=== PATIENT | female | born 1995 | race Caucasian/White ===

== ENCOUNTER → 2016-10-31 | Outpatient (REF) | payer OTHER ==
[2016-10-31 13:33] LABS: MEAN CORPUSCULAR HEMOGLOBIN 28.3 pg (27.0-33.0); MEAN CORPUSCULAR HGB CONC 33.3 g/dl (32.0-36.5); MEAN CORPUSCULAR VOLUME 85.1 fl (80.0-96.0); RED CELL DISTRIBUTION WIDTH 12.7 % (11.5-14.5); WHITE BLOOD COUNT 8.3 K/mm3 (4.0-10.0)
[2016-10-31 14:10] LABS: FREE T4 1.07 NG/DL (0.78-1.33); HCG, SERUM QUANTITATIVE < 1.0 MIU/ML
[2016-11-03 14:17] LABS: 17 HYDROXY PROGESTERONE 37 ng/dL (.)
== END ==
LOC: M LAB REF 12:20
PROVIDERS: ATTEND Advanced Practice Midwife
DX: N92.6 Irregular menstruation, unspecified (principal)

== ENCOUNTER → 2016-12-04 | Outpatient (REF) | payer OTHER ==
[2016-12-04 14:20] LABS: ALBUMIN 3.9 GM/DL (3.2-5.2); ALBUMIN/GLOBULIN RATIO 1.11 (1.00-1.93); ALKALINE PHOSPHATASE 61 U/L (45-117); ALT/SGPT 23 U/L (12-78); ANION GAP 10 MEQ/L (8-16); AST/SGOT 11 U/L (15-37); BILIRUBIN,TOTAL 0.2 MG/DL (0.2-1.0); BLOOD UREA NITROGEN 12 MG/DL (7-18); CALCIUM LEVEL 9.4 MG/DL (8.5-10.1); CARBON DIOXIDE LEVEL 24 MEQ/L (21-32); CHLORIDE LEVEL 109 MEQ/L (98-107); CREATININE FOR GFR 0.65 MG/DL (0.55-1.02); GLUCOSE, FASTING 91 MG/DL (70-105); POTASSIUM SERUM 4.5 MEQ/L (3.5-5.1); SODIUM LEVEL 143 MEQ/L (136-145); TOTAL PROTEIN 7.4 GM/DL (6.4-8.2)
== END ==
LOC: M SMT 13:28
PROVIDERS: ATTEND Advanced Practice Midwife
DX: E28.1 Androgen excess (principal)

== ENCOUNTER → 2017-11-12 | Outpatient (CLI) | payer OTHER ==
[2017-11-12 17:04] LABS: INR 1.06; PARTIAL THROMBOPLASTIN TIME 31.9 SECONDS (25.4-37.6); PROTHROMBIN TIME 13.9 SECONDS (12.1-14.4)
[2017-11-14 10:35] LABS: FIBRINOGEN 366 MG/DL (221-452)
== END ==
LOC: M WUC 11:34
DX: Z36.89 Encounter for other specified antenatal screening (principal); D68.0 Von Willebrand disease; Z3A.00 Weeks of gestation of pregnancy not specified
CPT/HCPCS: 85384

== ENCOUNTER 2018-05-05 06:34 | Inpatient (IN) | payer OTHER ==
[~2018-05-05] VITALS: Ht 162.6 cm; Wt 111.3 kg
[2018-05-05] VITALS (29 sets, daily range): BP systolic 110–163; BP diastolic 56–85
[2018-05-05] MEDS ORDERED: PENICILLIN G POTASSIUM IV 5 MU in D5W MINI-BAG PLUS 100 ML IV STA (07:16)
[2018-05-05] MEDS ORDERED: BETAMETHASONE SOLUSPAN 6MG/ML INJ 5ML (J0702) IM ONE (07:45)
[2018-05-05] MEDS ORDERED: BREO1INH PO (08:07)
[2018-05-05] MEDS ORDERED: ALBU83IN INH (08:07)
[2018-05-05] MEDS ORDERED: PRENTAB9 PO (08:07)
[2018-05-05 08:09] LABS: HEMOGLOBIN 11.4 g/dl (12.0-15.5); MEAN CORPUSCULAR HEMOGLOBIN 28.4 pg (27.0-33.0); MEAN CORPUSCULAR HGB CONC 33.5 g/dl (32.0-36.5); MEAN CORPUSCULAR VOLUME 84.6 fl (80.0-96.0); PLATELET COUNT, AUTOMATED 240 10^3/uL (150-450); RED BLOOD COUNT 4.02 10^6/uL (4.00-5.40); WHITE BLOOD COUNT 14.9 10^3/uL (4.0-10.0)
[2018-05-05] MEDS: miSOPROStol 50 MCG 1/2 TAB (S0191) SL SCH ×3 (09:50→16:00)
[2018-05-05] MEDS: PENICILLIN G POTASSIUM IV 2.5 MU in APPROPRIATE DILUENT 1 EA IV SCH ×2 (12:07→16:25)
[2018-05-05] MEDS ORDERED: LR 1,000 ML IV ONE (17:00)
[2018-05-05] MEDS ORDERED: FENTANYL 2MCG/ML ROPIVACAINE 0.2% IN 0.9% NACL 100ML IVBAG As Ordered ONE (17:08)
[2018-05-05] MEDS: LR 1,000 ML IV SCH ×2 (17:44→18:28)
[2018-05-05] MEDS ORDERED: LACTATED RINGER'S 1000 ML IV PRN (17:45)
[2018-05-05] MEDS ORDERED: diphenhydrAMINE INJ 50MG/ML VIAL (J1200) IV PRN (17:45)
[2018-05-05] MEDS ORDERED: EPIDURAL COMMENT XX SCH (17:45)
[2018-05-05] MEDS ORDERED: EPIDURAL/PCA KEYS XX PRN (17:45)
[2018-05-05] MEDS ORDERED: ONDANSETRON 4MG/2ML VIAL (J2405) IV PRN (17:45)
[2018-05-05] MEDS ORDERED: ePHEDrine SULFATE 25 MG/5 ML(5MG/ML) SYRINGE IV PRN (17:45)
[2018-05-05] MEDS ORDERED: REFRIGERATOR IV KEYS XX PRN (17:45)
[2018-05-05] MEDS ORDERED: NALOXONE INJ 0.4 MG/1 ML VIAL (J2310) IV PRN (17:45)
[2018-05-05] MEDS ORDERED: FENTANYL/ROPIVACAINE/NACL BAG 100 ML EPIDURAL SCH (17:45)
[2018-05-05] MEDS ORDERED: OXYTOCIN 30 UNITS IN 0.9% NaCl 500ML IV BAG (J2590) As Ordered ONE (18:46)
[2018-05-05] MEDS ORDERED: OXYTOCIN DRIP 30 UNITS in APPROPRIATE DILUENT 1 EA IV SCH (19:22)
[2018-05-05] MEDS ORDERED: ACETAMINOPHEN 500 MG TAB PO PRN (19:30)
[2018-05-05] MEDS ORDERED: DOCUSATE SODIUM 100 MG CAP PO PRN (19:30)
[2018-05-05] MEDS ORDERED: MEASLES,MUMPS,RUBELLA VACCINE INJ (MMR-II) (90707) SC SCH (19:30)
[2018-05-05] MEDS ORDERED: METHYLERGONOVINE MALEATE 0.2 MG TAB PO PRN (19:30)
[2018-05-05] MEDS ORDERED: RHOGAM 300 MCG (1500 IU) INJ (J2790) IM SCH (19:30)
[2018-05-05] MEDS ORDERED: IBUPROFEN 800 MG TAB PO PRN (19:30)
[2018-05-05] MEDS ORDERED: DIBUCAINE 1% OINTMENT 30GM TOP PRN (19:30)
--- NOTE | 2018-05-05 19:48 | DNPDOC ---
[facility] Delivery Note Delivery Note DATE OF DELIVERY: 05/05/2018 at 1901 PREDELIVERY DIAGNOSIS: 35-3/7 weeks' gestation and labor. POST DELIVERY DIAGNOSIS: Delivered. PROCEDURE: Spontaneous vaginal delivery. COOKER SULFITE: Jeffery Driscoll CNM, RADHA ANESTHESIA: epidural. ESTIMATED BLOOD LOSS: 250 mL. FINDINGS: 6 pounds 4 ounces; 2830 grams; male , Score 8/9, PPROM. DELIVERY SUMMARY: Patient is a 23-year-old female who is now a who presented at 35.3 weeks gestation with premature rupture of membranes. She spontaneously ruptured at 0445 this morning. She received 1 dose of betamethasone. She requested an epidural and did receive it for pain management. The patient was given 2 doses of cytotec and progressed to fully dilated at 1855. Dr. Savage was notified prior to pushing. She pushed to a living male in the MATTHEW position with restitution to ROT at 1901. The anterior shoulder delivered with ease and the corpus immediately followed. The baby was placed on the maternal stomach active and crying with stimulation. The cord was clamped after pulsation ceased x2 and cut by the FOB. A 3-vessel cord was noted. The placenta delivered spontaneously and intact at 1907. Uterine hemostasis was achieved via rapid infusion of IV Pitocin and fundal massage. The vagina and perineum were inspected and found to be intact. Dr. Savage arrived to the delivery 8 minutes after. Mom plans to bottle feed. They are naming him "Ranjit." Baby to stay with mom in the room for 30 minutes then transition in the NICU for at least 4 hours. Both mom and baby are in stable condition. JEFFERY DRISCOLL CNM May 05, 2018 19:48
[2018-05-06 06:02] VITALS: BP 113/54
--- NOTE | 2018-05-06 06:02 | HPE ---
DATE OF ADMISSION: 05/05/2018 A 23-year-old G1 (), para (P) 0 female at 35-3/7 weeks gestation by seven week ultrasound with estimated date of confinement (EDC) 06/06/2018 presents with spontaneous loss of fluid per vagina at 4:45 a.m. on the day of admission. She continued to leak fluid. She denies contractions. She has good movement. COURSE: The patient initiated care at [facility]. She transferred to [facility] at 33 weeks gestation 04/01/2018. The remainder of her course was unremarkable. PAST MEDICAL HISTORY: 1. Mild asthma. 2. Von Willebrand's deficiency. 3. A history of genital herpes simplex viruses (HSV). PAST SURGICAL HISTORY: 1. Tonsillectomy. 2. Ovarian cystectomy. ALLERGIES: None. SOCIAL HISTORY: The father of the baby is involved. The patient lives in [place]. She denies cigarettes, alcohol or drug use. FAMILY HISTORY: Noncontributory. PHYSICAL EXAMINATION: VITAL SIGNS: Blood pressure 123/74, pulse 84, afebrile. She is in no apparent distress. HEAD AND NECK: Exam normal. LUNGS: Clear. HEART: Regular rate and rhythm. ABDOMEN: Nontender and gravid. heart tones are category 1. STERILE VAGINAL EXAM: Grossly ruptured, clear fluid noted, positive nitrazine, cervix 2 cm, 70%, -2 station, posterior vertex, moderate. EXTREMITIES: Nontender. CONTRACTIONS: None. LABORATORY DATA: Blood type is O positive, Rubella immune, RPR nonreactive. Hepatitis B and C negative. Diabetes screen 91. ASSESSMENT: A 23-year-old (G) 1, female at 35-3/7 weeks gestation with spontaneous rupture of membranes. PLAN: The patient is admitted on 05/05/2018. We will proceed to induction of labor. The patient received antibiotics for group B Streptococcus (GBS) prophylaxis due to a group B Streptococcus (GBS) unknown status.
[2018-05-06] MEDS: PRENATAL VITAMINS CHEWABLE TABLET PO SCH (08:14)
[2018-05-06 18:00] VITALS: BP 123/70
[2018-05-07 05:49] VITALS: BP 130/64
[2018-05-07] MEDS: PRENATAL VITAMINS CHEWABLE TABLET PO SCH (08:18)
[2018-05-07] MEDS ORDERED: IBUP-1114 PO (09:16)
[2018-05-07] MEDS ORDERED: MAPA500T2 PO (09:16)
== END 2018-05-07 09:35 | disposition home or self-care (01) | DRG 560 ==
LOC: M LDO 06:34 → M LDI 07:10 → M OBS 22:01
PROVIDERS: ADMIT Specialist; ATTEND Advanced Practice Midwife
PROC: 10E0XZZ Delivery of Products of Conception, External Approach (ICD-10-PCS; principal; 2018-05-05)
DX: O42.013 Preterm premature rupture of membranes, onset of labor within 24 hours of rupture, third trimester (principal); O99.824 Streptococcus B carrier state complicating childbirth; Z3A.35 35 weeks gestation of pregnancy; Z37.0 Single live birth

== ENCOUNTER → 2018-08-12 | Outpatient (REF) | payer OTHER ==
[~2018-08-12] MED LIST: ALBU83IN INH; BREO1INH PO; IBUP-1114 PO; MAPA500T2 PO; PRENTAB9 PO
[2018-08-12 13:40] LABS: BASO % 0.4 % (0.0-1.0); EOS # 0.8 10^3/uL (0.0-0.50); EOS % 7.9 % (0.0-3.0); HEMATOCRIT 40.9 % (36.0-47.0); HEMOGLOBIN 13.4 g/dl (12.0-15.5); LYMPH # 3.3 10^3/uL (1.5-6.5); LYMPH % 31.2 % (24.0-44.0); MEAN CORPUSCULAR HEMOGLOBIN 27.6 pg (27.0-33.0); MEAN CORPUSCULAR HGB CONC 32.8 g/dl (32.0-36.5); MEAN CORPUSCULAR VOLUME 84.2 fl (80.0-96.0); MONO # 0.6 10^3/uL (0.0-0.8); MONO % 5.3 % (0.0-5.0); NEUTROPHILS # 5.8 10^3/uL (1.8-7.7); PLATELET COUNT, AUTOMATED 329 10^3/uL (150-450); RED BLOOD COUNT 4.86 10^6/uL (4.00-5.40); WHITE BLOOD COUNT 10.6 10^3/uL (4.0-10.0)
== END ==
LOC: M LAB REF 12:58
PROVIDERS: ATTEND Internal Medicine Pulmonary Disease
DX: J45.40 Moderate persistent asthma, uncomplicated (principal)

== ENCOUNTER → 2019-03-17 | Outpatient (CLI) | payer OTHER | LOC: M PLALAB 11:48 | PROVIDERS: ATTEND Advanced Practice Midwife | DX: O36.80X0 Pregnancy with inconclusive fetal viability, not applicable or unspecified (principal) ==

== ENCOUNTER → 2019-03-24 | Outpatient (CLI) | payer OTHER ==
--- NOTE | 2019-03-24 17:43 | REP ---
FIRST TRIMESTER ULTRASOUND: Real-time ultrasound evaluation of the gravid uterus is performed. There is a single living intrauterine gestation. The estimated gestational age is 8 weeks 2 days based on a crown-rump length of 18 mm. EDC 11/01/2019. heart rate is 178 beats per minute. There is no subchorionic hemorrhage. There is a cystic structure adjacent to the left ovary 2.0 x 2.5 x 1.7 cm which appears to represent a paraovarian cyst. Ovaries otherwise normal demonstrating internal blood flow with duplex Doppler evaluation. Electronically Signed by Oleg Alex MD 03/26/2019 10:23 A
== END ==
LOC: M RAD 15:18
PROVIDERS: ATTEND Advanced Practice Midwife
DX: O36.80X0 Pregnancy with inconclusive fetal viability, not applicable or unspecified (principal); Z3A.08 8 weeks gestation of pregnancy

== ENCOUNTER → 2019-05-14 | Outpatient (CLI) | payer OTHER ==
[2019-05-14 18:44] LABS: GLUCOSE CHALLENGE TEST 1 HOUR 76 MG/DL (LESS THAN 140)
[2019-05-14 19:16] LABS: BASO # 0.1 10^3/uL (0.0-0.2); BASO % 0.4 % (0.0-1.0); EOS # 0.8 10^3/uL (0.0-0.5); EOS % 6.1 % (0.0-3.0); HEMATOCRIT 39.9 % (36.0-47.0); HEMOGLOBIN 12.8 g/dl (12.0-15.5); LYMPH # 3.2 10^3/uL (1.5-5.0); LYMPH % 24.7 % (24.0-44.0); MEAN CORPUSCULAR HEMOGLOBIN 27.3 pg (27.0-33.0); MEAN CORPUSCULAR HGB CONC 32.1 g/dl (32.0-36.5); MEAN CORPUSCULAR VOLUME 85.1 fl (80.0-96.0); MONO # 0.5 10^3/uL (0.0-0.8); MONO % 4.1 % (0.0-5.0); NEUTROPHILS # 8.3 10^3/uL (1.5-8.5); NEUTROPHILS % 64.5 % (36.0-66.0); PLATELET COUNT, AUTOMATED 299 10^3/uL (150-450); RED BLOOD COUNT 4.69 10^6/uL (4.00-5.40); WHITE BLOOD COUNT 12.9 10^3/uL (4.0-10.0)
[2019-05-14 19:37] LABS: HIV 1&2 SCREEN CENTAUR NEGATIVE (NEGATIVE)
[2019-05-14 19:42] LABS: HEMOGLOBIN A1c 5.8 %
[2019-05-16 10:08] LABS: RUBELLA IgG QUALITATIVE IMMUNE (IMMUNE)
[2019-05-16 10:36] LABS: HEPATITIS C VIRUS ABY INDEX < 0.0 INDEX (<0.8)
== END ==
LOC: M PLALAB 12:53
PROVIDERS: ATTEND Advanced Practice Midwife
DX: O99.211 Obesity complicating pregnancy, first trimester (principal)

== ENCOUNTER → 2019-08-13 | Outpatient (REF) | payer OTHER, MEDICAID ==
[2019-08-13 14:30] LABS: HEMATOCRIT 36.1 % (36.0-47.0); HEMOGLOBIN 11.6 g/dl (12.0-15.5); MEAN CORPUSCULAR HEMOGLOBIN 27.8 pg (27.0-33.0); MEAN CORPUSCULAR HGB CONC 32.1 g/dl (32.0-36.5); MEAN CORPUSCULAR VOLUME 86.6 fl (80.0-96.0); PLATELET COUNT, AUTOMATED 290 10^3/uL (150-450); RED BLOOD COUNT 4.17 10^6/uL (4.00-5.40); WHITE BLOOD COUNT 13.3 10^3/uL (4.0-10.0)
== END ==
LOC: M PLALAB 10:41
PROVIDERS: ATTEND Advanced Practice Midwife
DX: O09.219 Supervision of pregnancy with history of pre-term labor, unspecified trimester (principal)

== ENCOUNTER → 2019-09-25 | Outpatient (REF) | payer OTHER, MEDICAID | LOC: M SFHCWAGY 14:25 | PROVIDERS: ATTEND Advanced Practice Midwife | DX: O99.213 Obesity complicating pregnancy, third trimester (principal) ==

== ENCOUNTER → 2019-10-02 | Outpatient (REF) | payer OTHER, MEDICAID | LOC: M PLALAB 08:39 | PROVIDERS: ATTEND Advanced Practice Midwife | DX: O99.213 Obesity complicating pregnancy, third trimester (principal) ==

== ENCOUNTER 2019-10-28 00:08 | Inpatient (IN) | payer OTHER, MEDICAID ==
[~2019-10-28] VITALS: Ht 160 cm; Wt 112.3 kg
[2019-10-28] VITALS (40 sets, daily range): BP systolic 90–132; BP diastolic 45–77
[2019-10-28 01:22] LABS: HEMOGLOBIN 11.1 g/dl (12.0-15.5); MEAN CORPUSCULAR HEMOGLOBIN 25.9 pg (27.0-33.0); MEAN CORPUSCULAR HGB CONC 31.7 g/dl (32.0-36.5); MEAN CORPUSCULAR VOLUME 81.8 fl (80.0-96.0); PLATELET COUNT, AUTOMATED 275 10^3/uL (150-450); RED BLOOD COUNT 4.28 10^6/uL (4.00-5.40)
[2019-10-28] MEDS ORDERED: VALT500T PO (01:22)
[2019-10-28] MEDS ORDERED: SPIR1CAP INH (01:22)
[2019-10-28] MEDS ORDERED: SING10TA32 PO (01:23)
[2019-10-28] MEDS ORDERED: LACTATED RINGER'S 1000 ML IV STA (01:24)
[2019-10-28] MEDS ORDERED: miSOPROStol 50 MCG 1/2 TAB (S0191) As Ordered ONE (01:35)
[2019-10-28] MEDS: miSOPROStol 50 MCG 1/2 TAB (S0191) PO SCH ×2 (01:37→05:39)
--- NOTE | 2019-10-28 01:41 | HPEPDOC ---
Obstetrical History & Physical General Date of Admission Oct 28, 2019 at 00:08 Primary Care Physician: JEFFERY MURDOCK CNM History of Present Illness Patient is a 24-year-old female who is now a at 39.3 weeks gestation with an BO of 11/01/19 based off of her first trimester ultrasound. She initiated care in her first trimester with [facility]. 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 She presents for an elective induction of labor. She reports active movement. She denies leaking of fluid, vaginal bleeding, or contractions. She does report some cramping. Chief Complaint: Induction of labor Information Provided By: Patient Age: 24 : 2 Term: 0 Pre-term: 1 Abortions: 0 Livin Care Care: Good Care Dating Final EDC: Nov 01, 2019 Final EDC by: 1st trimester (US) EGA at Admission: 39.3 Antepartum Course Diagnos(e)s History of delivery HSV II-taking Valtrex Asthma Von Willebrand-mild Height (inches): 63 Pre- weight (lbs.): 239 Admission Weight (lbs.): 248 Change in Weight (lbs.): 9 Past Medical History Past Obstetrical History : Past Obstetrical History: Primgravida Date of Delivery: May 05, 2018 Gestation: 35.3 Type of Delivery: Spontaneous Vaginal Del. 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: Herpes simplex virus(HSV) Past Medical History Medical History Asthma obesity Surgical History: Tonsilectomy, Other (oophorectomy with cystectomy) Family History Significant Family History: Cancer (breast cancer and colon cancer), Other (Mother and sister with Von-Willenbrand) Social History Marital Status: Family situation: Spouse/partner home Psychosocial History: No pertinent psych hx * Smoker: non-smoker Alcohol: Denies Drugs: denies Abuse Violence Screening Have you been hit/kicked/slapp: No Have you been sexually assault: No Allergies Coded Allergies: No Known Allergies (Verified , 05/05/18) Medications Scheduled Fluticasone/Vilanterol (Breo Ellipta 100-25 Mcg INH) 1 Inh Inh, 1 PUFF PO DAILY Montelukast Sodium (Singulair) 10 Mg Tablet, 1 TAB PO DAILY No.137/Iron/Folic Acd ( Vitamin Tablet) 1 Tab Tab, 1 TAB PO DAILY Tiotropium [place] (Spiriva) 18 Mcg Cap.w.dev, 1 INHALATION INH DAILY Valacyclovir HCl (Valtrex) 500 Mg Tablet, 1 TAB PO DAILY Scheduled PRN Acetaminophen (Mapap) 500 Mg Tab, 1,000 MG PO Q6HP PRN for PAIN Albuterol Sulf (Albuterol Sulfate) 2.5 Mg/3 Ml Nebu, 2.5 MG INH for RESPIRATORY DISTRESS Ibuprofen (Ibuprofen) 400 Mg Tab, 800 MG PO Q8HP PRN for PAIN Physical Examination Physical Examination GENERAL: Alert and oriented times three. BREAST: . ABDOMEN: Gravid and non-tender to touch. FETUS: Is vertex (VTX) by sterile vaginal examination (SVE), fetus is vertex (VTX) by Tay. Perineum: Visual inspection done and no lesions present. HEART RATE: Regular rate and rhythm. LUNGS: Clear to auscultation (CTA). EXTREMITIES: No edema. No clonus. Deep tendon reflexes (DTRs) + 2. Vital Signs/I&O Vital Signs Date Time Temp Pulse Resp B/P (MAP) Pulse Ox O2 Delivery O2 Flow Rate FiO2 10/28/19 00:31 98.0 78 121/58 (79) Laboratory Data 24H LABS Laboratory Tests 2 10/28/19 00:26: Serology Scanned Report Hepatitis B Testing 10/28/19 01:15: Nucleated Red Blood Cells % (auto) 0.0 CBC/BMP Laboratory Tests 10/28/19 01:15 Pertinent Laboratoy Data Blood Type: O+ RBC Antibody Screen: Negative HIV: Negative Hepatitis B: Negative Hepatitis C: Negative Rapid Plasma Reagin: Nonreactive Rubella: Immune Chlamydia/Gonorrhea: Negative Group B Streptococcus: Negative Vaginal Examination Dilation: 3 cm Effacement: other (75%) Station: -1 Cervical Consistency: Soft Cervical Position: Anterior Presentation: Cephalic presentation Position: Vertex (occiput) Assessment Heart Rate (FHR): 130 Variability: Moderate Accelerations: Positive Decelerations: None Tocometer Contractions: Yes Frequency: irregular Multi-drug resistant Organism: No history of MDRO Assessment/Plan Assessment IUP at 39.4 weeks gestation Category I FHR tracing GBS negative elective induction of labor Plan Admit to L&D. OOB ad wilma. Diet: regular now and switch to clear liquid when IV Pitocin is started.. Group B Streptococcus (GBS) negative. Labs and intravenous (IV) per unit protocol. Counseled on Cytotec and IV Pitocin for induction of labor (IOL). Cytotec ordered to start IOL. Anesthesia consult per patient's request. Lactated Ringers (LR): Bolus 800 mL prior to epidural then at 125 mL/hr. Anticipate cervical ripening. C-S as appropriate. JEFFERY MURDOCK CNM Oct 28, 2019 01:41
[2019-10-28] MEDS ORDERED: OXYTOCIN DRIP 30 UNITS in IV 1 EA IV SCH ×2 (09:30→17:22)
--- NOTE | 2019-10-28 09:31 | IPNPDOC ---
Obstetrical Progress Note Date of Service Oct 28, 2019 Subjective Patient reports she feels some contractions and she is feeling cramping. Objective Vital Signs Date Time Temp Pulse Resp B/P (MAP) Pulse Ox O2 Delivery O2 Flow Rate FiO2 10/28/19 07:38 98.4 93 16 99/56 (70) 98 Assessment Heart Rate (FHR): 130 Variability: Moderate Accelerations: Positive Decelerations: None Heart Rate Tracing: Category I Tocometer Contractions: Yes Frequency: regular Duration: less than 60 seconds Sterile Vaginal Examination Dilation: 4 cm Effacement (%): 80% Station: -1 Cervical Consistency: Soft Cervical Position: Anterior Postion/Presentation: Cephalic presentation Assessment and Plan Age: 24 : 2 Term: 0 Pre-term: 1 Abortions: 0 Livin EGA at Admission: 39.3 Status: Reassuring Group B Streptococcus: Negative Anticipate: Vaginal Delivery Additional Comments IV Pitocin to be started per order. JEFFERY MURDOCK CNM Oct 28, 2019 09:31
[2019-10-28] MEDS: LR 1,000 ML IV SCH ×2 (12:22→14:27)
[2019-10-28] MEDS ORDERED: FENTANYL 2MCG/ML ROPIVACAINE 0.2% IN 0.9% NACL 100ML IVBAG As Ordered ONE (13:32)
[2019-10-28] MEDS ORDERED: diphenhydrAMINE 50MG/ML VIAL (J1200) IV PRN (15:15)
[2019-10-28] MEDS ORDERED: ePHEDrine SULFATE 25 MG/5 ML(5MG/ML) SYRINGE IV PRN (15:15)
[2019-10-28] MEDS ORDERED: REFRIGERATOR IV KEYS XX PRN (15:15)
[2019-10-28] MEDS ORDERED: LACTATED RINGER'S 1000 ML IV PRN (15:15)
[2019-10-28] MEDS ORDERED: EPIDURAL COMMENT XX SCH (15:15)
[2019-10-28] MEDS ORDERED: NALOXONE INJ 0.4MG/1ML VIAL (J2310 PER 1MG) IV PRN (15:15)
[2019-10-28] MEDS ORDERED: ONDANSETRON 4MG/2ML VIAL IV PRN (15:15)
[2019-10-28] MEDS ORDERED: FENTANYL/ROPIVACAINE/NACL BAG 100 ML EPIDURAL SCH (15:15)
[2019-10-28] MEDS ORDERED: EPIDURAL/PCA KEYS XX PRN (15:15)
--- NOTE | 2019-10-28 15:35 | IPNPDOC ---
Obstetrical Progress Note Date of Service Oct 28, 2019 Subjective Patient is comfortable with her epidural. Objective Vital Signs Date Time Temp Pulse Resp B/P (MAP) Pulse Ox O2 Delivery O2 Flow Rate FiO2 10/28/19 07:38 98.4 93 16 99/56 (70) 98 Assessment Heart Rate (FHR): 125 Variability: Moderate Accelerations: Positive Decelerations: None Heart Rate Tracing: Category I Tocometer Contractions: Yes Frequency: regular Sterile Vaginal Examination Dilation: 5 cm Effacement (%): 90% Station: -1 Cervical Consistency: Soft Cervical Position: Anterior Postion/Presentation: Cephalic presentation Assessment and Plan Status: Reassuring Group B Streptococcus: Negative Anticipate: Vaginal Delivery Additional Comments IV Pitocin is at 3 mu/min. AROM to a small amount of clear fluid. JEFFERY MURDOCK CNM Oct 28, 2019 15:35
[2019-10-28] MEDS ORDERED: MEASLES,MUMPS,RUBELLA VACCINE INJ (MMR-II) (90707) SC SCH (17:30)
[2019-10-28] MEDS ORDERED: ACETAMINOPHEN TAB 650MG DOSE (2X325MG) PO PRN (17:30)
[2019-10-28] MEDS ORDERED: ANUSOL HC CREAM 30GM TOP PRN (17:30)
[2019-10-28] MEDS ORDERED: DIBUCAINE 1% OINTMENT 30GM TOP PRN (17:30)
[2019-10-28] MEDS ORDERED: METHYLERGONOVINE MALEATE 0.2 MG TAB PO PRN (17:30)
[2019-10-28] MEDS ORDERED: ACETAMINOPHEN 500 MG TAB PO PRN (17:30)
[2019-10-28] MEDS ORDERED: IBUPROFEN 600MG TAB PO PRN (17:30)
[2019-10-28] MEDS ORDERED: DOCUSATE SODIUM 100 MG CAP PO PRN (17:30)
[2019-10-28] MEDS ORDERED: RHOGAM 300 MCG (1500 IU) INJ (J2790) IM SCH (17:30)
--- NOTE | 2019-10-28 17:31 | DNPDOC ---
[facility] Delivery Note Delivery Note DATE OF DELIVERY: 10/28/19 at 1658. PREDELIVERY DIAGNOSIS: 39-3/7 weeks' gestation and labor. POST DELIVERY DIAGNOSIS: Delivered. PROCEDURE: Spontaneous vaginal delivery. NATURAL HISTORY COLLECTIONS CURATOR: Jeffery Driscoll CNM, RADHA ANESTHESIA: epidural. ESTIMATED BLOOD LOSS: 300 mL. FINDINGS: 7 pounds 15 ounces; 3600 grams; female , Score 8/9. DELIVERY SUMMARY: Patient is a 24-year-old female who is now a who presented to L&D for induction of labor. She received 2 doses of Cytotec and IV Pitocin for induction. The patient requested an epidural for pain management. She progressed to fully dilated at 1647 and pushed to a living female in the OA position with restitution to LOT. The anterior shoulder delivered with ease and the corpus immediately followed. The baby was placed on the maternal abdomen active and crying with stimulation. The cord was clamped x2 after 2 minutes and cut by the FOB. A 3-vessel cord was noted. The placenta delivered spontaneously and intact at 1704. Uterine hemostasis was achieved via rapid infusion of IV Pitocin and fundal massage. The cervix, perineum, and vagina was inspected and found to be intact. Mom plans to bottle feed. They are naming her Dawsyn. All counts of instruments and sponges were accounted for. Both mom and baby are in stable condition. JEFFERY DRISCOLL CNM Oct 28, 2019 17:31
[2019-10-28] MEDS: IBUPROFEN 800 MG TAB PO PRN (22:58)
[2019-10-29 06:02] VITALS: BP 110/56
[2019-10-29] MEDS: IBUPROFEN 800 MG TAB PO PRN ×2 (08:10→20:25)
[2019-10-29] MEDS: PRENATAL VITAMINS CHEWABLE TABLET PO SCH (08:10)
[2019-10-29 17:39] VITALS: BP 113/58
[2019-10-30 05:40] VITALS: BP 111/63
[2019-10-30] MEDS: PRENATAL VITAMINS CHEWABLE TABLET PO SCH (08:46)
== END 2019-10-30 11:20 | disposition home or self-care (01) | DRG 560 ==
LOC: M LDI 00:08 → M OBS 19:23
PROVIDERS: ADMIT Advanced Practice Midwife; ATTEND Advanced Practice Midwife
PROC: 10E0XZZ Delivery of Products of Conception, External Approach (ICD-10-PCS; principal; 2019-10-28)
PROC: 10907ZC Drainage of Amniotic Fluid, Therapeutic from Products of Conception, Via Natural or Artificial Opening (ICD-10-PCS; 2019-10-28)
PROC: 3E097GC Introduction of Other Therapeutic Substance into Nose, Via Natural or Artificial Opening (ICD-10-PCS; 2019-10-28)
DX: O98.32 Other infections with a predominantly sexual mode of transmission complicating childbirth (principal); D68.0 Von Willebrand disease; O99.12 Other diseases of the blood and blood-forming organs and certain disorders involving the immune mechanism complicating childbirth; Z3A.39 39 weeks gestation of pregnancy; Z37.0 Single live birth; A60.09 Herpesviral infection of other urogenital tract

== ENCOUNTER → 2021-09-29 | Outpatient (CLI) | payer OTHER, MEDICAID ==
[~2021-09-29] MED LIST changes: +ALBU2.5V10 INH; -ALBU83IN INH; +SING10TA32 PO; +SPIR1CAP INH; +VALT500T PO
[2021-09-29 17:08] LABS: BASO % 0.1 % (0.0-1.0); HEMATOCRIT 39.3 % (36.0-47.0); HEMOGLOBIN 13.1 g/dl (12.0-15.5); LYMPH # 3.3 10^3/uL (1.5-5.0); LYMPH % 32.5 % (24.0-44.0); MEAN CORPUSCULAR HEMOGLOBIN 27.8 pg (27.0-33.0); MEAN CORPUSCULAR HGB CONC 33.3 g/dl (32.0-36.5); MEAN CORPUSCULAR VOLUME 83.4 fl (80.0-96.0); MONO # 0.4 10^3/uL (0.0-0.8); MONO % 4.1 % (2.0-8.0); NEUTROPHILS # 6.3 10^3/uL (1.5-8.5); PLATELET COUNT, AUTOMATED 274 10^3/uL (150-450); RED BLOOD COUNT 4.71 10^6/uL (4.00-5.40)
[2021-09-29 18:20] LABS: HEPATITIS C VIRUS ABY INDEX 0.1 INDEX (<0.8); HIV 1&2 SCREEN CENTAUR NEGATIVE (NEGATIVE)
[2021-09-29 19:53] LABS: GC DNA AMPLIFICATION NEGATIVE (NEGATIVE)
== END ==
LOC: M PLALAB 14:07
PROVIDERS: ATTEND Advanced Practice Midwife
DX: O99.511 Diseases of the respiratory system complicating pregnancy, first trimester (principal)

== ENCOUNTER → 2021-12-20 | Outpatient (CLI) | payer MEDICAID, OTHER | LOC: M RAD 09:36 | PROVIDERS: ATTEND Advanced Practice Midwife | DX: O99.512 Diseases of the respiratory system complicating pregnancy, second trimester (principal); Z3A.22 22 weeks gestation of pregnancy ==

== ENCOUNTER → 2022-01-09 | Outpatient (CLI) | payer OTHER | LOC: M WHC 11:51 | PROVIDERS: ATTEND Advanced Practice Midwife | DX: Z36.2 Encounter for other antenatal screening follow-up (principal); O09.212 Supervision of pregnancy with history of pre-term labor, second trimester; Z3A.26 26 weeks gestation of pregnancy ==

== ENCOUNTER → 2022-03-13 | Outpatient (CLI) | payer OTHER ==
[2022-03-13 17:15] LABS: HEMATOCRIT 39.5 % (36.0-47.0); HEMOGLOBIN 12.5 g/dl (12.0-15.5); MEAN CORPUSCULAR HEMOGLOBIN 27.4 pg (27.0-33.0); MEAN CORPUSCULAR HGB CONC 31.6 g/dl (32.0-36.5); MEAN CORPUSCULAR VOLUME 86.6 fl (80.0-96.0); PLATELET COUNT, AUTOMATED 263 10^3/uL (150-450); RED BLOOD COUNT 4.56 10^6/uL (4.00-5.40); WHITE BLOOD COUNT 13.8 10^3/uL (4.0-10.0)
== END ==
LOC: M PLALAB 14:37
PROVIDERS: ATTEND Advanced Practice Midwife
DX: O09.212 Supervision of pregnancy with history of pre-term labor, second trimester (principal)

== ENCOUNTER → 2022-03-20 | Outpatient (CLI) | payer OTHER | LOC: M RAD 14:29 | PROVIDERS: ATTEND Advanced Practice Midwife | DX: O99.513 Diseases of the respiratory system complicating pregnancy, third trimester (principal); Z3A.35 35 weeks gestation of pregnancy ==

== ENCOUNTER → 2022-03-22 | Outpatient (REF) | payer OTHER, MEDICAID | LOC: M PLALAB 11:58 | PROVIDERS: ATTEND Advanced Practice Midwife | DX: O09.893 Supervision of other high risk pregnancies, third trimester (principal) ==